=== PATIENT | female | born 1945 | race Caucasian/White ===

== ENCOUNTER 2021-07-11 04:22 | Day surgery (SDC) | payer OTHER, MEDICARE ==
[2021-07-07 19:04] VITALS: BMI 15.9
[2021-07-11] MEDS ORDERED: PROPOFOL 20 ML ONE ×2 (07:23)
[2021-07-11] MEDS ORDERED: ACETAMINOPHEN 325 MG TABLET (FP) PO PRN (09:21)
[2021-07-11] MEDS ORDERED: ONDANSETRON 4 MG/2 ML VIAL IVPUSH PRN (09:21)
[2021-07-11] MEDS ORDERED: LACTATED RINGERS SOLUTION 1,000 ML IV SCH (09:30)
[2021-07-11 10:30] VITALS: BP 152/71; PULSE 64; TEMP 97
== END 2021-07-11 10:34 | disposition home or self-care (01) ==
LOC: JASU-SURG 04:22
PROVIDERS: ATTEND Urology
PROC: 0TF4XZZ Fragmentation in Left Kidney Pelvis, External Approach (ICD-10-PCS; principal; 2021-07-11 08:00)
DX: N20.0 Calculus of kidney (principal)

== ENCOUNTER 2021-08-16 17:40 | Inpatient (IN) | payer OTHER, MEDICARE ==
[2021-08-16] MEDS ORDERED: morphine CARPU-JECT 4 MG/1 ML DISP.SYRIN IVPUSH ONE (18:13)
[2021-08-16] MEDS ORDERED: morphine SULFATE 4 MG/ML VIAL ONE ×2 (18:27→22:45)
[2021-08-16 19:18] LABS: HEMATOCRIT 35.3 % (32.4-45.2); HEMOGLOBIN 11.4 GM/dL (10.7-15.3); MCH 27.6 pg (25.7-33.7); MCHC 32.3 g/dl (32.0-36.0); MEAN CELL VOLUME 85.4 fl (80-96); MEAN PLT VOLUME 7.8 fl (7.5-11.1); PLATELET COUNT 318 10^3/uL (134-434); RBC 4.13 M/mm3 (3.60-5.2); RDW 13.9 % (11.6-15.6); WHITE BLOOD COUNT 15.9 K/mm3 (4.0-10.0)
[2021-08-16 19:30] LABS: CHLORIDE 103 mmol/L (98-107); SODIUM 137 mmol/L (136-145)
[2021-08-16 19:32] LABS: CALCIUM 8.9 mg/dL (8.5-10.1)
[2021-08-16 19:33] LABS: ALBUMIN 3.4 g/dl (3.4-5.0); ANION GAP 7 MMOL/L (8-16); BLOOD UREA NITROGEN 18.4 mg/dL (7-18); CO2 27 mmol/L (21-32); GLUCOSE,RANDOM 90 mg/dL (74-106)
[2021-08-16 19:36] LABS: CREATININE 0.9 mg/dL (0.55-1.3); SGPT/ALT 20 U/L (13-61)
[2021-08-16 19:38] LABS: BILIRUBIN,TOTAL 0.3 mg/dL (0.2-1); TOT PROT 7.3 g/dl (6.4-8.2)
[2021-08-16 19:39] LABS: ALK PHOS 130 U/L (45-117)
[2021-08-16 19:43] LABS: SGOT/AST 21 U/L (15-37)
[2021-08-16 20:32] LABS: ANISOCYTOSIS 0; MACROCYTOSIS 0; PLATELET ESTIMATE NORMAL
[2021-08-16 21:31] LABS: INR 1.05 (0.83-1.09); PROTHROMBIN TIME (PATIENT) 12.9 SEC (9.7-13.0)
[2021-08-16 21:34] LABS: ACTIVATED PTT 26.8 SECONDS (25.2-36.5)
[2021-08-16 21:56] LABS: EPI CELLS 11 /uL (0-25.1); HYALINE CASTS 3 /uL (0-3.1); URINE APPEARANCE TURBID; URINE BACTERIA >9,000 /uL (0-1359); URINE BILIRUBIN NEGATIVE (NEGATIVE); URINE COLOR YELLOW; URINE GLUCOSE (UA) NEGATIVE (NEGATIVE); URINE KETONE NEGATIVE (NEGATIVE); URINE LEUK ESTERASE 3+ (NEGATIVE); URINE NITRITE POSITIVE (NEGATIVE); URINE PROTEIN NEGATIVE (NEGATIVE); URINE UROBILINOGEN 0.2 mg/dL (0.2-1.0); URINE WBC 516 /uL (0-25.8)
[2021-08-16] MEDS ORDERED: CEFTRIAXONE 1 GM in DEXTROSE 5%-WATER - 100 ML IVPB ONE (22:12)
[2021-08-16] MEDS ORDERED: morphine SULFATE 4 MG/ML VIAL IVPUSH ONE (22:36)
[2021-08-16] MEDS ORDERED: CEFTRIAXONE 1 GM/50 ML BAG ONE (22:46)
[2021-08-16 23:25] LABS: URINE RBC 470.9 /uL (0-23.9)
[2021-08-16 23:26] LABS: YEAST NONE SEEN (NEGATIVE)
[2021-08-16] MEDS ORDERED: ACETAMINOPHEN 325 MG TABLET (FP) PO PRN (23:34)
[2021-08-16] MEDS ORDERED: SODIUM CHLORIDE 1,000 ML IV SCH (23:45)
[2021-08-16] MEDS ORDERED: POLYETHYLENE GLYCOL 3350 119 GM BTL PO PRN (23:47)
[2021-08-17] MEDS ORDERED: POLYETHYLENE GLYCOL 3350 119 GM BTL PO PRN (02:11)
[2021-08-17] MEDS ORDERED: POLYETHYLENE GLYCOL (HEALTHYLAX) 3350 17 GM PACKET PO PRN (02:15)
[2021-08-17 04:25] VITALS: BMI 16.9
[2021-08-17] MEDS: INSULIN SLIDING SCALE (NOVOLOG) 1 VIAL SQ SCH ×4 (06:19→21:26)
[2021-08-17 08:51] LABS: HEMATOCRIT 27.9 % (32.4-45.2); HEMOGLOBIN 9.4 GM/dL (10.7-15.3); MCH 28.4 pg (25.7-33.7); MCHC 33.6 g/dl (32.0-36.0); MEAN CELL VOLUME 84.3 fl (80-96); MEAN PLT VOLUME 7.7 fl (7.5-11.1); PLATELET COUNT 224 10^3/uL (134-434); RBC 3.31 M/mm3 (3.60-5.2); RDW 13.2 % (11.6-15.6); WHITE BLOOD COUNT 8.2 K/mm3 (4.0-10.0)
[2021-08-17 09:04] LABS: BLOOD UREA NITROGEN 18.3 mg/dL (7-18)
[2021-08-17 09:05] LABS: MAGNESIUM 2.5 mg/dL (1.8-2.4)
[2021-08-17 09:08] LABS: CREATININE 0.8 mg/dL (0.55-1.3); PHOSPHOROUS 3.8 mg/dL (2.5-4.9)
[2021-08-17] MEDS ORDERED: morphine SULFATE 4 MG/ML VIAL IVPUSH ONE (09:15)
[2021-08-17] MEDS ORDERED: ENOXAPARIN NA (PORCINE) 40 MG/0.4 ML DISP.SYRIN SQ SCH (10:00)
[2021-08-17] MEDS ORDERED: INSULIN (NOVOLOG) ASPART 100 UNITS/ML 10ML VIAL ONE ×2 (11:08→21:09)
[2021-08-17] MEDS: PANTOPRAZOLE 40 MG TABLET PO SCH (11:10)
[2021-08-17] MEDS: LOSARTAN POTASSIUM 50 MG TABLET PO SCH (11:10)
[2021-08-17] MEDS ORDERED: oxyCODONE HCL 5 MG TABLET PO PRN (11:36)
[2021-08-17] MEDS ORDERED: DOCUSATE SODIUM 100 MG CAPSULE (FP) PO PRN (11:36)
[2021-08-17] MEDS: morphine SULFATE 4 MG/ML VIAL IVPUSH PRN ×2 (12:04→21:26)
[2021-08-17] MEDS ORDERED: DEXTROSE 5%-WATER - 50 ML IVPB ONE (17:08)
[2021-08-17] MEDS ORDERED: cefTRIAXone SODIUM 1 GM VIAL ONE (17:08)
[2021-08-17] MEDS: CEFTRIAXONE 1 GM in DEXTROSE 5%-WATER - 50 ML IVPB SCH (17:22)
[2021-08-17] MEDS ORDERED: ATORVASTATIN CA 40 MG TABLET (FP) PO SCH (22:00)
[2021-08-18] MEDS: INSULIN SLIDING SCALE (NOVOLOG) 1 VIAL SQ SCH ×4 (06:17→21:38)
[2021-08-18 07:56] LABS: BASO % 0.5 % (0-2.0); HEMOGLOBIN 9.8 GM/dL (10.7-15.3); LYMPH % 12.5 % (8-40); MCH 28.5 pg (25.7-33.7); MCHC 33.7 g/dl (32.0-36.0); MEAN CELL VOLUME 84.5 fl (80-96); MEAN PLT VOLUME 7.6 fl (7.5-11.1); MONO % 7.8 % (3.8-10.2); NEUT % 76.2 % (42.8-82.8); PLATELET COUNT 238 10^3/uL (134-434); RBC 3.43 M/mm3 (3.60-5.2); RDW 13.8 % (11.6-15.6); WHITE BLOOD COUNT 8.4 K/mm3 (4.0-10.0)
[2021-08-18] MEDS: morphine SULFATE 4 MG/ML VIAL IVPUSH PRN ×3 (08:18→21:38)
[2021-08-18 08:31] LABS: BLOOD UREA NITROGEN 17.7 mg/dL (7-18); MAGNESIUM 2.4 mg/dL (1.8-2.4)
[2021-08-18 08:34] LABS: CREATININE 0.8 mg/dL (0.55-1.3); PHOSPHOROUS 3.6 mg/dL (2.5-4.9)
[2021-08-18 08:35] LABS: BILIRUBIN,TOTAL 0.2 mg/dL (0.2-1)
[2021-08-18 08:36] LABS: TOT PROT 5.6 g/dl (6.4-8.2)
[2021-08-18] MEDS ORDERED: ceFAZolin SODIUM 1 GM VIAL ONE ×3 (08:39→13:20)
[2021-08-18 08:42] LABS: ALBUMIN 2.3 g/dl (3.4-5.0)
[2021-08-18] MEDS ORDERED: cefTRIAXone SODIUM 1 GM VIAL ONE (09:30)
[2021-08-18] MEDS ORDERED: DEXTROSE 5%-WATER - 50 ML IVPB ONE (09:30)
[2021-08-18] MEDS: LOSARTAN POTASSIUM 50 MG TABLET PO SCH (09:31)
[2021-08-18] MEDS: CEFTRIAXONE 1 GM in DEXTROSE 5%-WATER - 50 ML IVPB SCH (09:32)
[2021-08-18] MEDS: PANTOPRAZOLE 40 MG TABLET PO SCH (09:33)
[2021-08-18] MEDS ORDERED: PROPOFOL 20 ML ONE (13:01)
[2021-08-18] MEDS ORDERED: MIDAZOLAM HCL 2 MG/2 ML SINGLE DOSE VIAL ONE (13:01)
[2021-08-18] MEDS ORDERED: ceFAZolin SODIUM 1 GM VIAL IVPB ONE (13:23)
[2021-08-18] MEDS ORDERED: LACTATED RINGERS SOLUTION 1,000 ML IV SCH ×2 (15:00→15:15)
[2021-08-18] MEDS ORDERED: ONDANSETRON 4 MG/2 ML VIAL IVPUSH PRN (15:06)
[2021-08-18] MEDS ORDERED: POLYETHYLENE GLYCOL (HEALTHYLAX) 3350 17 GM PACKET PO PRN (15:33)
[2021-08-18] MEDS: ACETAMINOPHEN 325 MG TABLET (FP) PO PRN (16:39)
[2021-08-18] MEDS: SODIUM CHLORIDE 1,000 ML IV SCH (16:43)
[2021-08-18] MEDS: ATORVASTATIN CA 40 MG TABLET (FP) PO SCH (21:37)
[2021-08-18] MEDS ORDERED: CEFAZOLIN 2 GM in DEXTROSE 5%-WATER - 50 ML IVPB SCH (22:00)
[2021-08-18] MEDS: CEFAZOLIN 2 GM in DEXTROSE 5%-WATER - 100 ML IVPB SCH (22:01)
[2021-08-19] MEDS: morphine SULFATE 4 MG/ML VIAL IVPUSH PRN (05:01)
[2021-08-19] MEDS: CEFAZOLIN 2 GM in DEXTROSE 5%-WATER - 100 ML IVPB SCH (06:21)
[2021-08-19] MEDS: INSULIN SLIDING SCALE (NOVOLOG) 1 VIAL SQ SCH ×2 (06:32→12:03)
[2021-08-19] MEDS ORDERED: ASPIRIN 325 MG TABLET PO SCH (08:00)
[2021-08-19] MEDS: ASPIRIN 325 MG TABLET PO SCH (08:12)
[2021-08-19] MEDS: oxyCODONE HCL 5 MG TABLET PO PRN ×3 (08:12→21:27)
[2021-08-19] MEDS: DOCUSATE SODIUM 100 MG CAPSULE (FP) PO PRN ×2 (08:12→21:28)
[2021-08-19 09:05] LABS: BASO % 0.5 % (0-2.0); HEMATOCRIT 22.7 % (32.4-45.2); HEMOGLOBIN 7.7 GM/dL (10.7-15.3); LYMPH % 9.6 % (8-40); MCH 28.6 pg (25.7-33.7); MCHC 33.9 g/dl (32.0-36.0); MEAN CELL VOLUME 84.6 fl (80-96); MEAN PLT VOLUME 7.6 fl (7.5-11.1); MONO % 6.8 % (3.8-10.2); NEUT % 81.1 % (42.8-82.8); PLATELET COUNT 256 10^3/uL (134-434); RBC 2.69 M/mm3 (3.60-5.2); RDW 13.4 % (11.6-15.6); WHITE BLOOD COUNT 10.4 K/mm3 (4.0-10.0)
[2021-08-19 09:53] LABS: BLOOD UREA NITROGEN 15.1 mg/dL (7-18); MAGNESIUM 2.2 mg/dL (1.8-2.4)
[2021-08-19 09:56] LABS: CREATININE 0.9 mg/dL (0.55-1.3)
[2021-08-19 09:57] LABS: PHOSPHOROUS 3.7 mg/dL (2.5-4.9)
[2021-08-19] MEDS ORDERED: CEFTRIAXONE 1 GM in DEXTROSE 5%-WATER - 50 ML IVPB SCH (10:00)
[2021-08-19] MEDS ORDERED: cefTRIAXone SODIUM 1 GM VIAL ONE (10:14)
[2021-08-19] MEDS ORDERED: DEXTROSE 5%-WATER - 50 ML IVPB ONE (10:14)
[2021-08-19] MEDS: PANTOPRAZOLE 40 MG TABLET PO SCH (10:27)
[2021-08-19] MEDS: LOSARTAN POTASSIUM 50 MG TABLET PO SCH (10:27)
[2021-08-19] MEDS: SODIUM CHLORIDE 1,000 ML IV SCH (18:40)
[2021-08-19] MEDS: ATORVASTATIN CA 40 MG TABLET (FP) PO SCH (21:27)
[2021-08-20 09:40] LABS: BASO % 0.9 % (0-2.0); EOS % 4.4 % (0-4.5); HEMATOCRIT 20.8 % (32.4-45.2); HEMOGLOBIN 7.1 GM/dL (10.7-15.3); LYMPH % 11.1 % (8-40); MCHC 33.9 g/dl (32.0-36.0); MEAN CELL VOLUME 85.4 fl (80-96); MEAN PLT VOLUME 8.1 fl (7.5-11.1); MONO % 6.6 % (3.8-10.2); PLATELET COUNT 231 10^3/uL (134-434); RBC 2.44 M/mm3 (3.60-5.2); RDW 13.1 % (11.6-15.6); WHITE BLOOD COUNT 9.3 K/mm3 (4.0-10.0)
[2021-08-20] MEDS: ASPIRIN 325 MG TABLET PO SCH (09:42)
[2021-08-20] MEDS: LOSARTAN POTASSIUM 50 MG TABLET PO SCH (09:42)
[2021-08-20] MEDS: PANTOPRAZOLE 40 MG TABLET PO SCH (09:42)
[2021-08-20 10:14] LABS: MAGNESIUM 2.1 mg/dL (1.8-2.4)
[2021-08-20 10:18] LABS: PHOSPHOROUS 3.7 mg/dL (2.5-4.9)
[2021-08-20 10:53] LABS: PLATELET ESTIMATE NORMAL
[2021-08-20] MEDS: ACETAMINOPHEN 325 MG TABLET (FP) PO PRN (20:31)
[2021-08-20] MEDS: ATORVASTATIN CA 40 MG TABLET (FP) PO SCH (21:25)
[2021-08-21] MEDS: ASPIRIN 325 MG TABLET PO SCH (08:45)
[2021-08-21] MEDS: oxyCODONE HCL 5 MG TABLET PO PRN (08:45)
[2021-08-21] MEDS: LOSARTAN POTASSIUM 50 MG TABLET PO SCH (09:05)
[2021-08-21] MEDS: PANTOPRAZOLE 40 MG TABLET PO SCH (09:05)
[2021-08-21] MEDS ORDERED: MULTIVITAMINS THER W-MINERALS COMBO TABLET (FP) PO SCH (10:00)
[2021-08-21 12:16] LABS: BASO % 1.5 % (0-2.0); HEMATOCRIT 23.1 % (32.4-45.2); HEMOGLOBIN 7.8 GM/dL (10.7-15.3); LYMPH % 13.6 % (8-40); MCH 28.4 pg (25.7-33.7); MCHC 33.9 g/dl (32.0-36.0); MEAN CELL VOLUME 83.7 fl (80-96); MEAN PLT VOLUME 7.3 fl (7.5-11.1); MONO % 4.8 % (3.8-10.2); NEUT % 74.1 % (42.8-82.8); PLATELET COUNT 262 10^3/uL (134-434); RBC 2.76 M/mm3 (3.60-5.2); RDW 12.9 % (11.6-15.6); WHITE BLOOD COUNT 8.4 K/mm3 (4.0-10.0)
[2021-08-21] MEDS: ACETAMINOPHEN 325 MG TABLET (FP) PO PRN (18:03)
[2021-08-21 18:11] VITALS: BP 129/56; PULSE 78; TEMP 98.4
== END 2021-08-21 22:30 | DRG 522 ==
LOC: JER 17:40 → JERBED 20:25 → J6S 08-17 03:59
PROVIDERS: ADMIT Internal Medicine; ATTEND Internal Medicine
PROC: 0SRS0J9 Replacement of Left Hip Joint, Femoral Surface with Synthetic Substitute, Cemented, Open Approach (ICD-10-PCS; principal; 2021-08-18 12:30)
DX: S72.002A Fracture of unspecified part of neck of left femur, initial encounter for closed fracture (principal); N39.0 Urinary tract infection, site not specified; E44.0 Moderate protein-calorie malnutrition; D62 Acute posthemorrhagic anemia; N32.81 Overactive bladder; Z68.1 Body mass index [BMI] 19.9 or less, adult; D64.9 Anemia, unspecified; Z86.16 Personal history of COVID-19; M81.0 Age-related osteoporosis without current pathological fracture; E78.5 Hyperlipidemia, unspecified; G43.909 Migraine, unspecified, not intractable, without status migrainosus; I10 Essential (primary) hypertension; W01.0XXA Fall on same level from slipping, tripping and stumbling without subsequent striking against object, initial encounter; Y93.89 Activity, other specified; Y92.89 Other specified places as the place of occurrence of the external cause; Y99.8 Other external cause status
CPT/HCPCS: 36415; 36430; 71045-TC-FY; 73110-TC-LT-FY; 73130-TC-LT-FY; 73502-TC-LT-FY; 73523-TC-FY; 73552-TC-LT-FY; 80048; 80053; 81003; 82550; 82962; 83036; 83735; 84100; 84484; 85025; 85027; 85610; 85730; 86850; 86900; 86901; 86922; 87086; 88305-TC; 88311-TC; 93005; 93010; 94760; 97116-GP; 97162-GP; 99285-25; C9803; P9058; U0003; U0005

== ENCOUNTER 2021-11-24 20:05 | Emergency (ER) | payer OTHER, MEDICARE ==
[2021-11-24] MEDS ORDERED: morphine CARPU-JECT 2 MG/1 ML DISP.SYRIN IVPUSH ONE (20:27)
[2021-11-24 20:39] VITALS: TEMP 97.3; BMI 21.2
[2021-11-24] MEDS ORDERED: morphine CARPU-JECT 4 MG/1 ML DISP.SYRIN IVPUSH ONE (20:39)
[2021-11-24] MEDS ORDERED: morphine SULFATE 4 MG/ML VIAL ONE (20:59)
[2021-11-24 21:27] LABS: BASO % 0.4 % (0-2.0); HEMATOCRIT 34.9 % (32.4-45.2); HEMOGLOBIN 11.6 GM/dL (10.7-15.3); LYMPH % 8.7 % (8-40); MCH 28.6 pg (25.7-33.7); MCHC 33.3 g/dl (32.0-36.0); MEAN PLT VOLUME 7.6 fl (7.5-11.1); MONO % 4.2 % (3.8-10.2); NEUT % 85.7 % (42.8-82.8); PLATELET COUNT 343 10^3/uL (134-434); RBC 4.06 M/mm3 (3.60-5.2); RDW 14.2 % (11.6-15.6); WHITE BLOOD COUNT 12.5 K/mm3 (4.0-10.0)
[2021-11-24] MEDS ORDERED: PROPOFOL 200 MG/20 ML VIAL IVPUSH ONE (21:28)
[2021-11-24] MEDS ORDERED: SODIUM CHLORIDE 0.9% 500 ML INFUS.BAG IV ONE (21:38)
[2021-11-24 21:42] LABS: INR 1.02 (0.83-1.09); PROTHROMBIN TIME (PATIENT) 11.7 SEC (9.7-13.0)
[2021-11-24 21:45] LABS: ACTIVATED PTT 26.8 SECONDS (25.2-36.5)
[2021-11-24] MEDS ORDERED: PROPOFOL 1,000,000 MCG/100 ML VIAL ONE (21:45)
[2021-11-24 21:49] LABS: CALCIUM 8.9 mg/dL (8.5-10.1)
[2021-11-24 21:50] LABS: ALBUMIN 3.3 g/dl (3.4-5.0); BLOOD UREA NITROGEN 21.7 mg/dL (7-18); MAGNESIUM 2.1 mg/dL (1.8-2.4)
[2021-11-24 21:53] LABS: CREATININE 0.9 mg/dL (0.55-1.3)
[2021-11-24 21:54] LABS: BILIRUBIN,TOTAL 0.2 mg/dL (0.2-1); TOT PROT 6.4 g/dl (6.4-8.2)
[2021-11-24 22:23] VITALS: BP 163/67; PULSE 70
== END 2021-11-24 23:42 | disposition home or self-care (01) ==
LOC: JER 20:05
PROC: 3E033GC Introduction of Other Therapeutic Substance into Peripheral Vein, Percutaneous Approach (ICD-10-PCS; principal; 2021-11-24)
DX: T84.020A Dislocation of internal right hip prosthesis, initial encounter (principal); W19.XXXA Unspecified fall, initial encounter
CPT/HCPCS: 36415; 73502-TC-RT-FY; 80053; 83735; 85025; 85610; 85730; 86850; 86900; 86901; 93005; 93010; 96374; 96375; 99291

== ENCOUNTER 2024-03-12 00:11 | Inpatient (IN) | payer OTHER, MEDICARE ==
[2024-03-12] MEDS ORDERED: HYDROmorphone HCl 2 MG/ML VIAL ONE (01:09)
[2024-03-12] MEDS: HYDROmorphone HCl 2 MG/ML VIAL IVPUSH STA (01:21)
[2024-03-12] MEDS: SODIUM CHLORIDE 0.9% 1000 ML INFUS.BAG IV ONE (01:22)
[2024-03-12 01:41] LABS: HEMATOCRIT 36.5 % (32.4-45.2); HEMOGLOBIN 12.2 GM/dL (10.7-15.3); MCH 29.9 pg (25.7-33.7); MCHC 33.4 g/dl (32.0-36.0); MEAN CELL VOLUME 89.5 fl (80-96); MEAN PLT VOLUME 7.7 fl (7.5-11.1); PLATELET COUNT 315 10^3/uL (134-434); RBC 4.08 M/mm3 (3.60-5.2); RDW 13.1 % (11.6-15.6); WHITE BLOOD COUNT 9.3 K/mm3 (4.0-10.0)
[2024-03-12 01:47] LABS: INR 0.97 (0.83-1.09); PROTHROMBIN TIME (PATIENT) 11.3 SEC (9.7-13.0)
[2024-03-12 01:50] LABS: ACTIVATED PTT 29.9 SECONDS (25.2-36.5)
[2024-03-12 02:06] LABS: CALCIUM 9.1 mg/dL (8.5-10.1)
[2024-03-12 02:07] LABS: BLOOD UREA NITROGEN 20.9 mg/dL (7-18)
[2024-03-12 02:10] LABS: CREATININE 0.8 mg/dL (0.55-1.3)
[2024-03-12 02:11] LABS: BILIRUBIN,TOTAL 0.2 mg/dL (0.2-1); TOT PROT 5.9 g/dl (6.4-8.2)
[2024-03-12 02:43] LABS: POTASSIUM 4.2 mmol/L (3.5-5.1)
[2024-03-12] MEDS: LISINOPRIL 10 MG TABLET PO SCH (10:31)
[2024-03-12] MEDS: PANTOPRAZOLE 40 MG TABLET PO SCH (10:31)
[2024-03-12] MEDS: HYDROmorphone HCl 2 MG/ML VIAL IVPUSH PRN (11:05)
[2024-03-12 13:27] VITALS: RESP 18
[2024-03-12] MEDS ORDERED: LIDOCAINE 4% PATCH TP SCH (13:52)
[2024-03-12] MEDS: ACETAMINOPHEN 500 MG TABLET (FP) PO SCH (14:12)
[2024-03-12] MEDS: oxyCODONE HCL 5 MG TABLET PO PRN (14:43)
[2024-03-12] MEDS: LIDOCAINE 5% TOPICAL PATCH TP SCH (14:57)
[2024-03-12] MEDS: ENOXAPARIN NA (PORCINE) 40 MG/0.4 ML DISP.SYRIN SQ SCH (20:08)
[2024-03-12] MEDS: LIDOCAINE 4% PATCH TP SCH (20:09)
[2024-03-12] MEDS: MIRTAZAPINE 15 MG TABLET (FP) PO SCH (21:44)
[2024-03-12] MEDS: ROSUVASTATIN CA 5 MG TABLET PO SCH (21:44)
[2024-03-12] MEDS ORDERED: LIDOCAINE PATCH REMOVAL MC SCH (22:00)
[2024-03-13] MEDS: LIDOCAINE PATCH REMOVAL MC SCH (09:48)
[2024-03-13] MEDS: PATIENT'S OWN MEDICATION (NON-FORMULARY) (Vibegron [Gemtesa] 75 MG Tablet) PO SCH (17:40)
[2024-03-14 12:37] VITALS: BMI 18.3
[2024-03-14] MEDS: MULTIVITAMINS (DAILY MVI) TABLET (FP) PO SCH (19:08)
[2024-03-14 23:39] VITALS: TEMP 98.4
[2024-03-15] MEDS: HYDROmorphone HCL 2 MG TABLET PO PRN (03:32)
[2024-03-15 05:45] VITALS: BP 117/53; PULSE 71
== END 2024-03-15 10:58 | DRG 562 ==
LOC: JER 00:11 → JERBED 04:42 → UNDOADMOB 04:42 → INTOOBSV 04:42 → J8W 05:33 → JERBED 05:33 → J8W 13:41 → JERBED 13:41 → OBSVTOIN 14:08
PROVIDERS: ADMIT Internal Medicine; ATTEND Nurse Practitioner Family
DX: S42.291A Other displaced fracture of upper end of right humerus, initial encounter for closed fracture (principal); E43 Unspecified severe protein-calorie malnutrition; Z68.1 Body mass index [BMI] 19.9 or less, adult; I10 Essential (primary) hypertension; E78.5 Hyperlipidemia, unspecified; Z96.643 Presence of artificial hip joint, bilateral; N32.81 Overactive bladder; K21.9 Gastro-esophageal reflux disease without esophagitis; W19.XXXA Unspecified fall, initial encounter; Y93.9 Activity, unspecified; Y92.89 Other specified places as the place of occurrence of the external cause; Y99.9 Unspecified external cause status
CPT/HCPCS: 36415; 72170-TC-FY; 73030-TC-RT-FY; 73200-TC-RT; 73502-TC-LT-FY; 80053; 84484; 85027; 85610; 85730; 86850; 86900; 86901; 87635; 93005; 93010; 97116-GP; 97161-GP; 99285-25; G0378

== ENCOUNTER 2024-04-15 09:09 | Inpatient (IN) | payer OTHER, MEDICARE ==
[2024-04-09 17:06] VITALS: BMI 17.5
[2024-04-15] MEDS ORDERED: METOCLOPRAMIDE HCL INJECTION 10 MG/2 ML VIAL ONE (09:28)
[2024-04-15] MEDS ORDERED: DEXAMETHASONE SOD PHOSPHATE 4 MG/1 ML VIAL ONE ×2 (09:28→12:10)
[2024-04-15] MEDS ORDERED: ONDANSETRON 4 MG/2 ML VIAL ONE ×4 (09:28→16:33)
[2024-04-15] MEDS ORDERED: TRANEXAMIC ACID 1000 MG/10 ML VIAL ONE ×3 (09:28→12:54)
[2024-04-15] MEDS ORDERED: SODIUM CHLORIDE 0.9% P/F 10 ML VIAL IJ ONE ×2 (09:29→09:32)
[2024-04-15] MEDS ORDERED: ceFAZolin SODIUM 1 GM VIAL ONE ×2 (09:29→11:57)
[2024-04-15] MEDS ORDERED: PHENYLEPHRINE HCL 10 MG/1 ML SINGLE DOSE VIAL ONE ×4 (09:31→15:50)
[2024-04-15] MEDS ORDERED: ePHEDrine SULFATE 50 MG/1 ML AMPULE ONE (09:32)
[2024-04-15] MEDS ORDERED: SUCCINYLCHOLINE CHLORIDE 200 MG/10 ML SYRINGE ONE ×2 (09:35→11:45)
[2024-04-15] MEDS ORDERED: PROPOFOL 20 ML ONE ×3 (09:39→12:07)
[2024-04-15] MEDS ORDERED: MIDAZOLAM HCL 2 MG/2 ML SINGLE DOSE VIAL ONE ×2 (09:41→10:23)
[2024-04-15] MEDS ORDERED: BUPIVACAINE HCL/PF 0.5% (5MG/ML) 10 ML VIAL ONE (10:23)
[2024-04-15] MEDS ORDERED: BUPIVACAINE LIPOSOME/PF (EXPAREL) 266 MG/20 ML VIAL ONE (10:23)
[2024-04-15] MEDS ORDERED: ROCURONIUM BROMIDE 50 MG/5 ML SYRINGE ONE ×2 (11:44→13:16)
[2024-04-15] MEDS ORDERED: VANCOMYCIN 1,000 MG VIAL (RESTRICTED TO ID ONLY) ONE ×2 (11:59→12:54)
[2024-04-15] MEDS ORDERED: VASopressin 20 UNITS/ML VIAL IV ONE (14:19)
[2024-04-15] MEDS ORDERED: ESMOLOL HCL 100,000 MCG/10 ML VIAL ONE (14:19)
[2024-04-15] MEDS: VANCOMYCIN 1,000 MG VIAL (RESTRICTED TO ID ONLY) IVPB ONE (15:33)
[2024-04-15] MEDS ORDERED: SUGAMMADEX SODIUM 200 MG/2 ML VIAL ONE (15:44)
[2024-04-15] MEDS ORDERED: ACETAMINOPHEN INJECTION 100 ML IVPB ONE (16:28)
[2024-04-15] MEDS: ACETAMINOPHEN 1000 MG/100 ML BAG IVPB ONE (16:30)
[2024-04-15] MEDS: ONDANSETRON 4 MG/2 ML VIAL IVPUSH PRN (16:35)
[2024-04-15] MEDS ORDERED: oxyCODONE HCL 5 MG TABLET PO PRN (16:41)
[2024-04-15] MEDS ORDERED: MAG HYDROX/AL HYDROX/SIMETH 30 ML UNIT-DOSE CUP PO PRN (16:45)
[2024-04-15] MEDS ORDERED: ONDANSETRON 4 MG/2 ML VIAL IVPUSH PRN (16:45)
[2024-04-15] MEDS ORDERED: MAGNESIUM HYDROX 2400MG/30ML ORAL SUSPENSION 30 ML CUP PO PRN (16:45)
[2024-04-15] MEDS ORDERED: HALOPERIDOL LACTATE 5 MG/ML ONE (17:10)
[2024-04-15] MEDS: HALOPERIDOL LACTATE 5 MG/ML IVPUSH ONE (17:15)
[2024-04-15] MEDS: LACTATED RINGERS SOLUTION 1,000 ML IV SCH ×2 (17:50→23:46)
[2024-04-15] MEDS ORDERED: CEFAZOLIN SODIUM 2 GM VIAL IVPB SCH (19:30)
[2024-04-15] MEDS: GABAPENTIN 300 MG CAPSULE PO SCH (23:34)
[2024-04-15] MEDS: DOCUSATE SODIUM 100 MG CAPSULE (FP) PO SCH (23:35)
[2024-04-15] MEDS: ACETAMINOPHEN 1000 MG/100 ML BAG IVPB SCH (23:35)
[2024-04-15] MEDS: SENNOSIDES/DOCUSATE COMBO (SENNA PLUS) TABLET (UD) PO SCH (23:35)
[2024-04-16] MEDS: VANCOMYCIN/WATER FOR INJ (PEG) 1,000 MG/200 ML BAG IVPB ONE (01:16)
[2024-04-16] MEDS: CEFAZOLIN SODIUM 2 GM VIAL IVPB SCH (01:16)
[2024-04-16 08:22] LABS: HEMATOCRIT 27.4 % (32.4-45.2); HEMOGLOBIN 8.7 G/dL (10.7-15.3); MCH 28.6 pg (25.7-33.7); MCHC 31.6 g/dl (32.0-36.0); MEAN CELL VOLUME 90.8 fl (80-96); MEAN PLT VOLUME 8.4 fl (7.5-11.1); PLATELET COUNT 180.7 10^3/uL (134-434); RBC 3.02 10^6/uL (3.60-5.2); RDW 15.2 % (11.6-15.6)
[2024-04-16 08:27] LABS: ANION GAP 11 mmol/L (4-13); CALCIUM 8.1 mg/dl (8.5-10.1); CHLORIDE 109 mmol/L (98-107); CO2 20 mmol/L (21-32); CREATININE 0.8 mg/dl (0.6-1.3); GLUCOSE,RANDOM 94 mg/dl (74-106); POTASSIUM 4.3 mmol/L (3.5-5.1); SODIUM 140 mmol/L (136-145)
[2024-04-16] MEDS: ASPIRIN 81 MG CHEWABLE TABLETS PO SCH (09:54)
[2024-04-16] MEDS: PANTOPRAZOLE 40 MG TABLET PO SCH (09:54)
[2024-04-16] MEDS: MULTIVITAMINS (DAILY MVI) TABLET (FP) PO SCH (09:54)
[2024-04-16] MEDS ORDERED: MIRTAZAPINE 15 MG TABLET (FP) PO SCH (10:00)
[2024-04-16] MEDS: MIRTAZAPINE 15 MG TABLET (FP) PO SCH (21:40)
[2024-04-16] MEDS: oxyCODONE HCL 5 MG TABLET PO PRN (21:41)
[2024-04-16] MEDS: ROSUVASTATIN CA 5 MG TABLET PO SCH (21:42)
[2024-04-17 01:57] VITALS: RESP 18
[2024-04-17 08:08] LABS: HEMATOCRIT 30.4 % (32.4-45.2); HEMOGLOBIN 9.7 G/dL (10.7-15.3); MCH 28.8 pg (25.7-33.7); MCHC 31.9 g/dl (32.0-36.0); MEAN CELL VOLUME 90.6 fl (80-96); MEAN PLT VOLUME 8.6 fl (7.5-11.1); PLATELET COUNT 191.3 10^3/uL (134-434); RBC 3.36 10^6/uL (3.60-5.2); RDW 15.4 % (11.6-15.6); WHITE BLOOD COUNT 8.4 10^3/uL (4.0-10.8)
[2024-04-17 11:08] VITALS: BP 91/40; PULSE 94; TEMP 98.1
== END 2024-04-17 12:35 | DRG 494 ==
LOC: FASU 09:09 → FM/S 16:33 → UNDOADMIN 16:33 → FM/S 18:27
PROVIDERS: ADMIT Internal Medicine; ATTEND Internal Medicine
PROC: 0PSF04Z Reposition Right Humeral Shaft with Internal Fixation Device, Open Approach (ICD-10-PCS; principal; 2024-04-15 12:29)
DX: S42.291A Other displaced fracture of upper end of right humerus, initial encounter for closed fracture (principal); M75.21 Bicipital tendinitis, right shoulder; W18.30XA Fall on same level, unspecified, initial encounter; M65.811 Other synovitis and tenosynovitis, right shoulder; Y92.89 Other specified places as the place of occurrence of the external cause; Y99.8 Other external cause status
CPT/HCPCS: 36415; 73030-TC-RT-FY; 80048; 85027; 88304-TC; 94760; 97116-GP; 97162-GP; C1713; J0131

== ENCOUNTER 2024-06-29 01:06 | Inpatient (IN) | payer OTHER ==
[2024-06-29 01:11] VITALS: BMI 17.2
[2024-06-29 02:55] LABS: BASO % 0.5 % (0-2.0); EOS % 2.5 % (0-4.5); HEMATOCRIT 32.6 % (32.4-45.2); LYMPH % 26.8 % (8-40); MCHC 33.7 g/dl (32.0-36.0); MEAN CELL VOLUME 91.9 fl (80-96); MEAN PLT VOLUME 7.6 fl (7.5-11.1); MONO % 9.4 % (3.8-10.2); NEUT % 60.8 % (42.8-82.8); PLATELET COUNT 237 10^3/uL (134-434); RBC 3.55 M/mm3 (3.60-5.2); RDW 15.8 % (11.6-15.6); WHITE BLOOD COUNT 6.7 K/mm3 (4.0-10.0)
[2024-06-29 03:22] LABS: POTASSIUM 3.7 mmol/L (3.5-5.1)
[2024-06-29 03:24] LABS: CALCIUM 7.8 mg/dL (8.5-10.1)
[2024-06-29 03:25] LABS: BLOOD UREA NITROGEN 22.8 mg/dL (7-18)
[2024-06-29 03:28] LABS: CREATININE 0.7 mg/dL (0.55-1.3)
[2024-06-29 03:29] LABS: BILIRUBIN,TOTAL 0.2 mg/dL (0.2-1); TOT PROT 4.7 g/dl (6.4-8.2)
[2024-06-29 07:41] LABS: HEMATOCRIT 28.7 % (32.4-45.2); HEMOGLOBIN 9.7 GM/dL (10.7-15.3); MCH 30.9 pg (25.7-33.7); MCHC 33.8 g/dl (32.0-36.0); MEAN CELL VOLUME 91.6 fl (80-96); MEAN PLT VOLUME 8.3 fl (7.5-11.1); PLATELET COUNT 210 10^3/uL (134-434); RBC 3.13 M/mm3 (3.60-5.2); RDW 15.6 % (11.6-15.6); WHITE BLOOD COUNT 5.2 K/mm3 (4.0-10.0)
[2024-06-29 08:12] LABS: POTASSIUM 3.6 mmol/L (3.5-5.1)
[2024-06-29 08:16] LABS: ALBUMIN 1.7 g/dl (3.4-5.0); BLOOD UREA NITROGEN 21.4 mg/dL (7-18); CALCIUM 7.7 mg/dL (8.5-10.1); MAGNESIUM 1.6 mg/dL (1.8-2.4)
[2024-06-29 08:18] LABS: CREATININE 0.6 mg/dL (0.55-1.3); PHOSPHOROUS 3.3 mg/dL (2.5-4.9)
[2024-06-29] MEDS ORDERED: ONDANSETRON 4 MG TABLET PO PRN (08:18)
[2024-06-29 08:20] LABS: BILIRUBIN,TOTAL 0.3 mg/dL (0.2-1)
[2024-06-29] MEDS: DOCUSATE SODIUM 100 MG CAPSULE (FP) PO SCH (09:50)
[2024-06-29] MEDS: LISINOPRIL 10 MG TABLET PO SCH (09:50)
[2024-06-29] MEDS: ASPIRIN 81 MG CHEWABLE TABLETS PO SCH (09:50)
[2024-06-29] MEDS: MIRTAZAPINE 15 MG TABLET (FP) PO SCH (21:37)
[2024-06-29] MEDS: ROSUVASTATIN CA 5 MG TABLET PO SCH (21:37)
[2024-06-29] MEDS: HEPARIN NA (PORCINE) 5,000 UNITS/ML 1ML VIAL SQ SCH (21:38)
[2024-06-29] MEDS: ACETAMINOPHEN 500 MG TABLET (FP) PO PRN (21:41)
[2024-07-01] MEDS: PATIENT'S OWN MEDICATION (NON-FORMULARY) (Vibegron [Gemtesa] 75 MG Tablet) PO SCH (05:07)
[2024-07-04 19:10] VITALS: BP 148/61; PULSE 71; RESP 16; TEMP 98.4
== END 2024-07-04 19:30 | DRG 555 ==
LOC: JER 01:06 → JERBED 02:42 → J8W 08:56 → OBSVTOIN 06-30 08:49 → J8W 06-30 16:35
PROVIDERS: ADMIT Internal Medicine; ATTEND Nurse Practitioner Acute Care
DX: M25.511 Pain in right shoulder (principal); E43 Unspecified severe protein-calorie malnutrition; R64 Cachexia; Z68.1 Body mass index [BMI] 19.9 or less, adult; I10 Essential (primary) hypertension; F32.A Depression, unspecified; R26.81 Unsteadiness on feet; R62.7 Adult failure to thrive; N32.81 Overactive bladder; E78.5 Hyperlipidemia, unspecified; Z93.3 Colostomy status; Z96.643 Presence of artificial hip joint, bilateral; Z60.8 Other problems related to social environment
CPT/HCPCS: 36415; 73030-TC-RT-FY; 73200-TC-RT; 80053; 83735; 84100; 85025; 85027; 87635; 97116-GP; 97161-GP; 99285-25; G0378; J1644